=== PATIENT | female | born 1940 | race Caucasian/White ===

== ENCOUNTER 2018-12-17 09:46 | Emergency (ER) | payer OTHER, MEDICAID ==
[~2018-12-17] VITALS: Ht 167.6 cm; Wt 98.4 kg
[~2018-12-17 09:46] MED LIST: BUPR150T12 PO; LEVO0.124 PO; LUBI24SG4 PO
[2018-12-17 09:50] VITALS: BP 130/85
[2018-12-17] MEDS ORDERED: NACL 0.9% 500 ML IV SCH (10:10)
--- NOTE | 2018-12-17 10:10 | NUR ---
78 yo f bib daughter w/ c/o dysuria and nausea x 4 days. pt saw pmd, given sulfamethoxazole. called pmd and told that she was still having symptoms, pmd said she could be septic, go to ER .DENIES V/D; SKIN IS PINK/WARM/DRY; AWAKE, ALERT LUNGS CLEAR BL; HR EVEN AND REGULAR; PT DENIES ANY FEVER, CP, SOB, OR COUGH AT THIS TIME; VSS; PATIENT POSITIONED FOR COMFORT; HOB ELEVATED; BEDRAILS UP X2; BED DOWN. ER MD MADE AWARE OF PT STATUS.
[2018-12-17] MEDS ORDERED: ONDANSETRON 4 MG/2 ML VIAL IVP ONE ×2 (10:45→12:20)
--- NOTE | 2018-12-17 10:55 | NUR ---
PT STARTED SHAKING. PER PT'S DAUGHT AND GRANDDAUGHTER. PT HAD SHAKING FOR 1 HOUR STRAIGHT AND 2 HOURS ON AND OFF LAST NIGHT. NOTIFIED DR. BLANC.
[2018-12-17 10:58] LABS: BASOPHILS % (AUTO) 0.5 % (0.0-2.0); EOSINOPHILS % (AUTO) 0.4 % (0.0-4.0); HEMATOCRIT 34.4 % (36-48); HEMOGLOBIN 11.1 g/dL (12.0-16.0); LYMPHOCYTES # (AUTO) 1.3 K/uL (2.5-16.5); LYMPHOCYTES % (AUTO) 12.8 % (20.5-51.1); MEAN CORPUSCULAR HEMOGLOBIN 29 pg (27-31); MEAN CORPUSCULAR HGB CONC 32 g/dL (33-37); MEAN CORPUSCULAR VOLUME 90.4 fL (80-94); MONOCYTES # (AUTO) 0.5 K/uL (0.8-1.0); MONOCYTES % (AUTO) 4.7 % (1.7-9.3); NEUTROPHILS # (AUTO) 8.5 K/uL (1.8-7.7); NEUTROPHILS % (AUTO) 81.6 % (42.2-75.2); PLATELET COUNT (AUTO) 269 K/uL (140-450); RED BLOOD CELL COUNT(AUTO) 3.81 MIL/uL (4.20-5.40); RED CELL DISTRIBUTION WIDTH 15.6 % (11.6-13.7); WHITE BLOOD COUNT (AUTO) 10.4 K/uL (4.8-10.8)
[2018-12-17 11:04] LABS: APPEARANCE,URINE CLEAR (CLEAR); BILIRUBIN,URINE NEGATIVE (NEGATIVE); BLOOD, URINE TRACE-I (NEGATIVE); COLOR,URINE YELLOW (YELLOW); LEUKOCYTE ESTERASE ,URINE 1+ (NEGATIVE); NITRITE, URINE NEGATIVE (NEGATIVE); UGLUCOSE NEGATIVE (NEGATIVE)
[2018-12-17 11:04] LABS: ANION GAP 8.8 (8-16); CARBON DIOXIDE 27.1 mmol/L (21-32); CHLORIDE 104 mmol/L (98-107); CREATININE 0.9 mg/dL (0.6-1.3); GLUCOSE 126 mg/dL (74-106); POTASSIUM 3.9 mmol/L (3.5-5.1); SODIUM SERUM 136 mmol/L (136-145); UREA NITROGEN, BLOOD 14 mg/dL (7-18)
--- NOTE | 2018-12-17 11:10 | NUR ---
NO MORE SHAKING AT THIS TIME.
[2018-12-17 11:11] LABS: PROTHROMBIN TIME 10.6 secs (10.8-13.4)
[2018-12-17 11:14] LABS: RBC,URINE 0-5 (RARE) /HPF (0-5)
[2018-12-17] MEDS ORDERED: KETOROLAC 30 MG/ML VIAL IVP ONE (11:15)
[2018-12-17 11:18] LABS: ALBUMIN 3.4 g/dL (3.4-5.0); ASPARTATE AMINOTRANSFERASE 10 U/L (15-37); TOTAL BILIRUBIN 0.4 mg/dL (0.0-1.0)
[2018-12-17] MEDS ORDERED: cefTRIAXone 1,000 MG VIAL ONE (11:29)
--- NOTE | 2018-12-17 12:19 | NUR ---
PT C/O HEADACH AND NAUSEOUS , NOTIFIED DR. BLANC
[2018-12-17] MEDS ORDERED: fentaNYL 0.05 MG/ML VIAL IVP ONE (12:20)
[2018-12-17 13:14] VITALS: BP 122/82
--- NOTE | 2018-12-17 13:14 | NUR ---
Patient discharged with v/s stable. Written and verbal after care instructions given and explained. Patient alert, oriented and verbalized understanding of instructions. Wheel Chair Assisted with to car. All questions addressed prior to discharge. ID band removed. Patient advised to follow up with PMD. Rx of MOTRIN 800MG, MACROBID 100MG AND ZOFRAN 4 MG ODT given. Patient educated on indication of medication including possible reaction and side effects. Opportunity to ask questions provided and answered.
== END 2018-12-17 13:14 | disposition home or self-care (01) ==
LOC: MED 09:46
DX: N39.0 Urinary tract infection, site not specified (principal); E03.9 Hypothyroidism, unspecified; R94.31 Abnormal electrocardiogram [ECG] [EKG]; Z79.899 Other long term (current) drug therapy
CPT/HCPCS: 36415; 71045; 80053; 81001; 83605; 83690; 83880; 84484; 85025; 85610; 85730; 87040; 87086; 87186; 93005; 96365; 96375; 96376; 99284; J0696; J1885; J2405; J3010; J7030; J7060; Q0092

== ENCOUNTER 2021-03-09 20:43 | Emergency (ER) | payer OTHER ==
[~2021-03-09] VITALS: Ht 157.5 cm; Wt 94.3 kg
[2021-03-09 20:52] VITALS: BP 140/88
--- NOTE | 2021-03-09 20:56 | NUR ---
ERMD IN TRIAGE FOR MEDICAL EVALUATION.
--- NOTE | 2021-03-09 21:00 | NUR ---
PATIENT BIB SELF FOR C/O URINARY BURNING SINCE . DENIES URINARY BURNING. +SCANT AMOUNTS OF BRIGHT RED BLOOD. URINE APPEARANCE IS ORANGE. DENIES ANY VAGINAL DISCHARGE OR FOUL ORDERS. A&OX4. USES W/C TO AMBULATE. PT IS ABLE TO STAND UP WITH ASSITANCES. DENIES ANY LIGHTHEADEDNESS, VERDIN, FEVERS, BODY ACHES, CHILLS, N,V,D, OR FLANK PAIN. VSS. ALLERGIES: CIPRO, SULFA PMH: ANEMIA, HYPTHYROID.
--- NOTE | 2021-03-09 21:01 | NUR ---
SKIN COLOR NORMAL FOR ETHNICITY. -DIAPHORETIC. SKIN IS WARM TO TOUCH.
--- NOTE | 2021-03-09 21:01 | NUR ---
BED LOCKED IN PLACE AT THE LOWEST POSITION.
--- NOTE | 2021-03-09 21:15 | NUR ---
ERMD DOING A VAGINAL EXAM AT BEDSIDE.
--- NOTE | 2021-03-09 21:29 | NUR ---
LAB AT BEDSIDE.
[2021-03-09 21:43] LABS: BASOPHILS # (AUTO) 0.1 K/uL (0.00-0.22); BASOPHILS % (AUTO) 0.8 % (0.0-2.0); EOSINOPHILS # (AUTO) 0.1 K/uL (0-0.4); EOSINOPHILS % (AUTO) 0.8 % (0.0-4.0); HEMATOCRIT 32.5 % (36-48); HEMOGLOBIN 10.3 g/dL (12.0-16.0); LYMPHOCYTES # (AUTO) 2.7 K/uL (2.5-16.5); LYMPHOCYTES % (AUTO) 24.7 % (20.5-51.1); MEAN CORPUSCULAR HEMOGLOBIN 27 pg (27-31); MEAN CORPUSCULAR HGB CONC 32 g/dL (33-37); MEAN CORPUSCULAR VOLUME 85.7 fL (80-94); MONOCYTES # (AUTO) 0.9 K/uL (0.8-1.0); MONOCYTES % (AUTO) 8.3 % (1.7-9.3); NEUTROPHILS # (AUTO) 7.1 K/uL (1.8-7.7); NEUTROPHILS % (AUTO) 65.4 % (42.2-75.2); PLATELET COUNT (AUTO) 407 K/uL (140-450); RED BLOOD CELL COUNT(AUTO) 3.79 MIL/uL (4.20-5.40); RED CELL DISTRIBUTION WIDTH 18.8 % (11.6-13.7); WHITE BLOOD COUNT (AUTO) 10.8 K/uL (4.8-10.8)
[2021-03-09] MEDS ORDERED: HYDROcodone/APAP 5/325 MG 1 TAB TAB ONE (21:57)
[2021-03-09 22:14] LABS: APPEARANCE,URINE CLOUDY (CLEAR); COLOR,URINE BLOODY (YELLOW)
[2021-03-09 22:15] LABS: BILIRUBIN,URINE NEGATIVE (NEGATIVE); BLOOD, URINE 3+ (NEGATIVE); LEUKOCYTE ESTERASE ,URINE TRACE (NEGATIVE); NITRITE, URINE POSITIVE (NEGATIVE); PH,URINE 6.5 (5.0-9.0); UGLUCOSE NEGATIVE (NEGATIVE)
[2021-03-09 22:25] LABS: RBC,URINE TOO NUMEROUS TO COUN /HPF (0-5)
[2021-03-09] MEDS ORDERED: CEPH-588 PO (23:09)
[2021-03-09 23:18] VITALS: BP 128/78
--- NOTE | 2021-03-09 23:18 | NUR ---
Patient discharged with v/s stable. Written and verbal after care instructions given and explained. Patient alert, oriented and verbalized understanding of instructions. Wheel Chair Assisted with by caregiver,PT ABLE TO AMBULATE WITH A STEADY GAIT. All questions addressed prior to discharge. ID band removed. Patient advised to follow up with PMD. Rx of KEFLEX given. Patient educated on indication of medication including possible reaction and side effects. Opportunity to ask questions provided and answered.
== END 2021-03-09 23:18 | disposition home or self-care (01) ==
LOC: MED 20:43
DX: N93.9 Abnormal uterine and vaginal bleeding, unspecified (principal); N39.0 Urinary tract infection, site not specified; E03.9 Hypothyroidism, unspecified; Z88.1 Allergy status to other antibiotic agents
CPT/HCPCS: 36415; 81001; 85025; 85610; 85730; 87086; 99283

== ENCOUNTER 2023-11-05 15:07 | Emergency (ER) | payer OTHER ==
[~2023-11-05] VITALS: Ht 160 cm; Wt 49.9 kg
[~2023-11-05 15:07] MED LIST changes: +CEPH-588 PO
[2023-11-05 15:10] VITALS: BP 107/70; PULSE 81; RESP 20; TEMP 97.7; O2SAT 96
[2023-11-05] MEDS ORDERED: NACL 0.9% 1,000 ML IV ONE (15:40)
[2023-11-05 16:21] LABS: BASOPHILS % (AUTO) 0.4 % (0.0-2.0); EOSINOPHILS % (AUTO) 0.8 % (0.0-4.0); HEMATOCRIT 39.2 % (36-48); LYMPHOCYTES # (AUTO) 0.9 K/uL (2.5-16.5); LYMPHOCYTES % (AUTO) 17.6 % (20.5-51.1); MEAN CORPUSCULAR HEMOGLOBIN 34 pg (27-31); MEAN CORPUSCULAR HGB CONC 33 g/dL (33-37); MEAN CORPUSCULAR VOLUME 101.1 fL (80-94); MONOCYTES # (AUTO) 0.4 K/uL (0.8-1.0); MONOCYTES % (AUTO) 8.5 % (1.7-9.3); NEUTROPHILS # (AUTO) 3.7 K/uL (1.8-7.7); NEUTROPHILS % (AUTO) 72.7 % (42.2-75.2); PLATELET COUNT (AUTO) 133 K/uL (140-450); RED BLOOD CELL COUNT(AUTO) 3.88 MIL/uL (4.20-5.40); RED CELL DISTRIBUTION WIDTH 15.6 % (11.6-13.7); WHITE BLOOD COUNT (AUTO) 5.1 K/uL (4.8-10.8)
[2023-11-05 16:39] LABS: INR 1.06 (0.8-1.2); PARTIAL THROMBOPLASTIN TIME 22.7 secs (22-35.6); PROTHROMBIN TIME 11.1 secs (10.8-13.4)
[2023-11-05 16:40] LABS: ANION GAP 12.4 (8-16); CALCIUM 9.3 mg/dL (8.5-10.1); CARBON DIOXIDE 28.4 mmol/L (21-32); CHLORIDE 104 mmol/L (98-107); CREATININE 0.7 mg/dL (0.6-1.3); GLUCOSE 120 mg/dL (74-106); POTASSIUM 3.8 mmol/L (3.5-5.1); SODIUM SERUM 141 mmol/L (136-145); UREA NITROGEN, BLOOD 11 mg/dL (7-18)
[2023-11-05 16:50] LABS: ALANINE AMINOTRANSFERASE 13 U/L (12-78); ALBUMIN 2.7 g/dL (3.4-5.0); ALKALINE PHOSPHATASE 64 U/L (50-136); ASPARTATE AMINOTRANSFERASE 13 U/L (15-37); BILIRUBIN,DIRECT 0.1 mg/dL (0.0-0.3); TOTAL BILIRUBIN 0.4 mg/dL (0.0-1.0); TOTAL PROTEIN, SERUM 6.6 g/dL (6.4-8.2)
[2023-11-05 19:10] LABS: APPEARANCE,URINE SL CLOUDY (CLEAR); BILIRUBIN,URINE NEGATIVE (NEGATIVE); BLOOD, URINE 1+ (NEGATIVE); COLOR,URINE OTHER (YELLOW); LEUKOCYTE ESTERASE ,URINE 3+ (NEGATIVE); NITRITE, URINE POSITIVE (NEGATIVE); PH,URINE 6.5 (5.0-9.0); PROTEIN,URINE TRACE (NEGATIVE); UGLUCOSE NEGATIVE (NEGATIVE); UROBILINOGEN,URINE 0.2 EU/dL (0.2 - 1)
[2023-11-05 19:32] LABS: BACTERIA,URINE >30 (MANY) /HPF (None Seen); SQUAMOUS EPITHELIAL CELL,UR 0-3 (FEW) /LPF (0-3 (FEW))
[2023-11-05] MEDS ORDERED: AMOX1TAB8 PO (20:29)
[2023-11-05] MEDS ORDERED: cefTRIAXone 1,000 MG VIAL ONE (20:37)
[2023-11-05 21:23] VITALS: BP 107/70; PULSE 85; RESP 20; TEMP 97.7; O2SAT 96
== END 2023-11-05 21:23 | disposition home or self-care (01) ==
LOC: MED 15:07
DX: R55 Syncope and collapse (principal); N39.0 Urinary tract infection, site not specified; K44.9 Diaphragmatic hernia without obstruction or gangrene; R60.0 Localized edema; E03.9 Hypothyroidism, unspecified; Z90.710 Acquired absence of both cervix and uterus; Z79.899 Other long term (current) drug therapy; Z79.2 Long term (current) use of antibiotics; Z88.8 Allergy status to other drugs, medicaments and biological substances; Z88.1 Allergy status to other antibiotic agents; Z88.2 Allergy status to sulfonamides
CPT/HCPCS: 36415; 70450; 71045; 71275; 80048; 80076; 81001; 83880; 84484; 85025; 85379; 85610; 85730; 87086; 93005; 96361; 96365; 99285; J0696; J7030; Q9967